=== PATIENT | male | born 1960 | race Caucasian/White ===

== ENCOUNTER 2017-09-11 10:18 | Emergency (ER) | payer BC ==
[2017-09-11 10:33] VITALS: TEMP 97.9
--- NOTE | 2017-09-11 11:56 | ED ---
General Adult HPI - General Chief complaint: Recheck/Abnormal Lab/Rx Stated complaint: elevated BP Time Seen by Provider: 09/11/17 11:03 Source: patient Mode of arrival: ambulatory Limitations: no limitations - History of Present Illness Initial comments: Patient presents with a chief complaint of back pain. he Is a 57-year-old male with no previous medical history noted. Patient states that 2 days ago, he was having a bonfire and sat down in a chair. When he sat down, the chair broke and he fell. He is complaining of pain in his lower back on the right side. Initially the patient was seen in medics presence of the emergency department for back pain and hypertension. Patient does not have a documented history of hypertension or restates that he has been borderline high in the past. Patient denies chest pain, shortness of breath, or abdominal pain. - Related Data Home Medications Medication Instructions Recorded Confirmed No Known Home Medications [No 09/11/17 09/11/17 Known Home Medications] Allergies Allergy/AdvReac Type Severity Reaction Status Date / Time No Known Allergies Allergy Verified 09/11/17 10:42 Review of Systems ROS Statement: Those systems with pertinent positive or pertinent negative responses have been documented in the HPI. ROS Other: All systems not noted in ROS Statement are negative. Musculoskeletal: Reports: back pain Past Medical History Additional Past Medical History / Comment(s): chronic back pain History of Any Multi-Drug Resistant Organisms: None Reported Past Surgical History: No Surgical Hx Reported Past Psychological History: No Psychological Hx Reported Smoking Status: Current every day smoker Past Alcohol Use History: Daily Past Drug Use History: None Reported General Exam Limitations: no limitations General appearance: alert, in no apparent distress Head exam: Present: atraumatic, normocephalic Eye exam: Present: normal appearance ENT exam: Present: normal exam Neck exam: Present: normal inspection Respiratory exam: Present: normal lung sounds bilaterally. Absent: respiratory distress Cardiovascular Exam: Present: regular rate, normal rhythm GI/Abdominal exam: Present: soft. Absent: distended, tenderness Rectal exam: Present: deferred Extremities exam: Present: normal inspection, other (extremities are warm with good cap refill, decreased pulses in left lower extremity. ) Back exam: Present: tenderness, muscle spasm, other (Patient is tenderness to palpation of the lower T-spine, and tenderness and muscle spasm on the right lower aspect of his back.) Neurological exam: Present: alert, oriented X3, CN II-XII intact, normal gait. Absent: motor sensory deficit Psychiatric exam: Present: normal affect, normal mood Skin exam: Present: warm, dry, intact Course Vital Signs 09/11/17 09/11/17 09/11/17 10:30 11:13 12:00 Temperature 97.9 F Pulse Rate 93 88 80 Respiratory 20 18 18 Rate Blood Pressure 177/99 187/106 190/114 O2 Sat by Pulse 96 97 96 Oximetry 09/11/17 09/11/17 12:45 12:55 Temperature Pulse Rate 78 77 Respiratory 18 18 Rate Blood Pressure 167/101 164/98 O2 Sat by Pulse 98 98 Oximetry Medical Decision Making - Medical Decision Making Patient presents with a chief complaint of lower back pain after a fall from a chair. On initial evaluation, patient is hypertensive, otherwise vital signs are stable. Patient was sent from that express reevaluation of back pain and hypertension. Examination is concerning as patient has decreased pulses felt on the left groin, and left dorsalis pedis. Nursing staff has a similar physical examination. Patient has good capillary refill and denies any pain or paresthesias of the lower extremities. Patient be evaluated with basic labs, computed tomography scan of the aorta. 1:26 PM Lab evaluation this patient is unremarkable. EKG performed at 12:08 PM shows normal sinus rhythm the rate of 88 bpm. EKG is otherwise unremarkable. Computed tomography scan shows no acute abnormality of the aorta. This time, patient is stable for discharge. Patient was instructed to take his previously prescribed Motrin as prescribed. Patient will be referred to primary care. The patient was instructed to follow-up in one to 2 days regarding his back pain , and his hypertension. Patient verbalizes understanding and is agreeable with this care plan. - Lab Data Result diagrams: 09/11/17 12:00 09/11/17 12:00 Lab Results 09/11/17 09/11/17 09/11/17 Range/Units 12:00 12:00 12:00 WBC 7.4 (3.8-10.6) k/uL RBC 4.91 (4.30-5.90) m/uL Hgb 15.6 (13.0-17.5) gm/dL Hct 45.1 (39.0-53.0) % MCV 91.8 (80.0-100.0) fL MCH 31.7 (25.0-35.0) pg MCHC 34.6 (31.0-37.0) g/dL RDW 12.3 (11.5-15.5) % Plt Count 215 (150-450) k/uL Neutrophils % 70 % Lymphocytes % 20 % Monocytes % 6 % Eosinophils % 2 % Basophils % 1 % Neutrophils # 5.2 (1.3-7.7) k/uL Lymphocytes # 1.5 (1.0-4.8) k/uL Monocytes # 0.4 (0-1.0) k/uL Eosinophils # 0.1 (0-0.7) k/uL Basophils # 0.0 (0-0.2) k/uL PT 10.2 (9.0-12.0) sec INR 1.0 (<1.2) Sodium 138 (137-145) mmol/L Potassium 4.4 (3.5-5.1) mmol/L Chloride 104 (98-107) mmol/L Carbon Dioxide 25 (22-30) mmol/L Anion Gap 9 mmol/L BUN 13 (9-20) mg/dL Creatinine 0.60 L (0.66-1.25) mg/dL Est GFR (CKD-EPI)AfAm >90 (>60 ml/min/1.73 sqM) Est GFR (CKD-EPI)NonAf >90 (>60 ml/min/1.73 sqM) Glucose 101 H (74-99) mg/dL Calcium 9.0 (8.4-10.2) mg/dL Troponin I (0.000-0.034) ng/mL 09/11/17 Range/Units 12:00 WBC (3.8-10.6) k/uL RBC (4.30-5.90) m/uL Hgb (13.0-17.5) gm/dL Hct (39.0-53.0) % MCV (80.0-100.0) fL MCH (25.0-35.0) pg MCHC (31.0-37.0) g/dL RDW (11.5-15.5) % Plt Count (150-450) k/uL Neutrophils % % Lymphocytes % % Monocytes % % Eosinophils % % Basophils % % Neutrophils # (1.3-7.7) k/uL Lymphocytes # (1.0-4.8) k/uL Monocytes # (0-1.0) k/uL Eosinophils # (0-0.7) k/uL Basophils # (0-0.2) k/uL PT (9.0-12.0) sec INR (<1.2) Sodium (137-145) mmol/L Potassium (3.5-5.1) mmol/L Chloride (98-107) mmol/L Carbon Dioxide (22-30) mmol/L Anion Gap mmol/L BUN (9-20) mg/dL Creatinine (0.66-1.25) mg/dL Est GFR (CKD-EPI)AfAm (>60 ml/min/1.73 sqM) Est GFR (CKD-EPI)NonAf (>60 ml/min/1.73 sqM) Glucose (74-99) mg/dL Calcium (8.4-10.2) mg/dL Troponin I <0.012 (0.000-0.034) ng/mL Disposition Clinical Impression: Hypertension, Back pain Disposition: HOME SELF-CARE Condition: Good Instructions: Low Back Strain (ED) Is patient prescribed a controlled substance at d/c from ED?: No Referrals: None,Stated [Primary Care Provider] - 1-2 days Jody Burch MD [STAFF PHYSICIAN] - 1-2 days
[2017-09-11 12:13] LABS: Basophils % (A) 1 %; Eosinophils # (A) 0.1 k/uL (0-0.7); Eosinophils % (A) 2 %; HCT 45.1 % (39.0-53.0); HGB 15.6 gm/dL (13.0-17.5); Lymphocytes # (A) 1.5 k/uL (1.0-4.8); Lymphocytes % (A) 20 %; MCH 31.7 pg (25.0-35.0); MCHC 34.6 g/dL (31.0-37.0); MCV 91.8 fL (80.0-100.0); Mean Platelet Volume 6.8; Monocytes # (A) 0.4 k/uL (0-1.0); Monocytes % (A) 6 %; Neutrophils # (A) 5.2 k/uL (1.3-7.7); Neutrophils % (A) 70 %; Platelet Count 215 k/uL (150-450); RBC 4.91 m/uL (4.30-5.90); RDW 12.3 % (11.5-15.5); WBC 7.4 k/uL (3.8-10.6)
[2017-09-11 12:22] LABS: Prothrombin Time 10.2 sec (9.0-12.0)
[2017-09-11 12:24] LABS: Anion Gap 9 mmol/L; Blood Urea Nitrogen 13 mg/dL (9-20); Carbon Dioxide 25 mmol/L (22-30); Chloride 104 mmol/L (98-107); Glucose 101 mg/dL (74-99); Potassium 4.4 mmol/L (3.5-5.1); Sodium 138 mmol/L (137-145)
--- NOTE | 2017-09-11 12:49 | CT ---
EXAMINATION TYPE: CT angio thoracic/abd aorta DATE OF EXAM: 09/11/2017 COMPARISON: NONE HISTORY: Low back pain without injury and hypertension CT DLP: 1879 mGycm. Automated Exposure Control for Dose Reduction was Utilized. CONTRAST: CTA scan of the thorax, abdomen and pelvis is performed with IV Contrast, patient injected with 100 m L of Isovue 370. Three-D reconstructed images are created independent workstation and reviewed. FINDINGS: VASCULAR: There is unremarkable central opacification of pulmonary arteries. There is satisfactory op acification of aorta without linear hypodensity to suggest dissection. No significant plaque or steno sis is present in majority. There is mild mixed plaque in the distal abdominal aorta. There is normal three-vessel origin from the aortic arch. There is patent celiac axis, SMA, bilateral single renal a rteries, and HAL without significant stenosis. There is mild mixed plaque bilateral common iliac melania waylon extending into internal iliac arteries. No significant stenosis is present. There is no signific ant plaque or stenosis in the external iliac arteries bilaterally. There is mild mixed plaque in the common femoral arteries successful bifurcation into superficial and deep femoral arteries, no signifi cant stenosis is evident. LUNGS: Mild emphysematous change with biapical pleural/parenchymal scarring is present. There is no s uspicious nodularity or masses. No worrisome consolidation or groundglass opacity is seen. No pleural effusion or pneumothorax is noted. MEDIASTINUM: There are no greater than 1 cm hilar or mediastinal lymph nodes. No cardiomegaly or pe ricardial effusion is seen. OTHER: Bilateral gynecomastia is identified. LIVER/GB: Liver is diffusely low dense relative to spleen on noncontrast study consistent with diffus e fatty infiltration PANCREAS: No significant abnormality is seen. SPLEEN: No significant abnormality is seen. ADRENALS: No significant abnormality is seen. KIDNEYS: No significant abnormality is seen. BOWEL: No significant abnormality is seen. GENITAL ORGANS: Central zone calcifications are seen in prostate gland at upper limits of normal in s ize. A few adjacent pelvic phleboliths are present. LYMPH NODES: No greater than 1cm abdominal or pelvic lymph nodes are appreciated. OSSEOUS STRUCTURES: There is moderate disc space narrowing L3-L4 and L4-L5 levels with vacuum disc ph enomenon. OTHER: There is moderate sized fat-containing right inguinal hernia. IMPRESSION: 1. No aortic aneurysm or dissection. No acute finding is seen to account for patient's symptoms.
[2017-09-11 13:48] VITALS: BP 159/102; PULSE 85; RESP 16
== END 2017-09-11 13:50 | disposition home or self-care (01) ==
LOC: EC 10:18
DX: I10 Essential (primary) hypertension (principal); M62.830 Muscle spasm of back; F17.200 Nicotine dependence, unspecified, uncomplicated; W07.XXXA Fall from chair, initial encounter
CPT/HCPCS: 36415; 93005; 80048; 84484; 85025; 85610; 75635; 71275; 99284; Q9967

== ENCOUNTER 2017-10-25 10:01 | Day surgery (SDC) | payer BC ==
[2017-10-18 10:05] VITALS: BMI 27.3
[~2017-10-25 10:01] MED LIST: DEXAMETHASONE SOD PHOSPHATE 10 MG/ML 1 ML VIAL IV ONE; HEPARIN SODIUM,PORCINE 5,000 UNIT/ML 1 ML VIAL SQ ONE; MIDAZOLAM 2 MG/2 ML VIAL IV PRN; ONDANSETRON 4 MG/2 ML VIAL IVP ONE; SCOPOLAMINE 1.5MG/72HR PATCH TRANSDERM ONE; ceFAZolin IN SWFI 2 GM/20 ML SYRINGE IVP ONE
[2017-10-25] MEDS: LACTATED RINGERS 1,000 ML IV SCH ×2 (10:48→10:50)
[2017-10-25] MEDS: LIDOCAINE 1% 20 ML VIAL (10MG/ML) FOR IV START INTRADERMA PRN ×2 (10:48→10:49)
--- NOTE | 2017-10-25 11:31 | P.GSHP ---
History of Present Illness H&P Date: 10/25/17 Chief Complaint: Bilateral inguinal hernia, umbilical hernia This is a 57-year-old male who presents today for laparoscopic robotic system repair of bilateral inguinal hernias and umbilical hernia. Patient developed pain at his umbilicus and bilateral groins. Past Medical History Past Medical History: Hypertension Additional Past Medical History / Comment(s): chronic back pain History of Any Multi-Drug Resistant Organisms: None Reported Past Surgical History: No Surgical Hx Reported Past Anesthesia/Blood Transfusion Reactions: No Reported Reaction Additional Past Anesthesia/Blood Transfusion Reaction / Comment(s): never had anesthesia Smoking Status: Current every day smoker - Past Family History Father Family Medical History: Myocardial Infarction ([place]) Medications and Allergies Home Medications Medication Instructions Recorded Confirmed Type Losartan Potassium 100 mg PO QAM 10/18/17 10/25/17 History [place]-3 Fatty Acids/Fish Oil [Fish 2 each PO QAM 10/18/17 10/25/17 History Oil 1,000 mg Softgel] Allergies Allergy/AdvReac Type Severity Reaction Status Date / Time No Known Allergies Allergy Verified 10/25/17 10:29 Surgical - Exam Vital Signs Temp Pulse Resp BP Pulse Ox 97.8 F 79 16 151/103 100 10/25/17 10:45 10/25/17 10:45 10/25/17 10:45 10/25/17 10:45 10/25/17 10:45 - General well developed, well nourished, no distress - Eyes PERRL - ENT normal pinna - Neck no masses - Respiratory normal expansion - Cardiovascular Rhythm: regular - Abdomen Abdomen: soft, non tender Hernia: inguinal (Bilateral), umbilical Assessment and Plan Assessment: Umbilical hernia, bilateral inguinal hernia, we will perform laparoscopic robotic-assisted repair.
[2017-10-25] MEDS ORDERED: fentaNYL (PF) 50 MCG/ML 2 ML AMP ONE (12:04)
[2017-10-25] MEDS ORDERED: KETOROLAC 30 MG/ML 1 ML VIAL ONE (12:04)
[2017-10-25] MEDS ORDERED: SUCCINYLCHOLINE CHLORIDE 100 MG/5 ML SYR IV ONE (12:04)
[2017-10-25] MEDS ORDERED: PROPOFOL 10 MG/ML 20 ML VIAL IV ONE (12:04)
[2017-10-25] MEDS ORDERED: PHENYLEPHRINE-0.9% NACL SYG 1 MG/10 ML SYRINGE ONE (12:04)
[2017-10-25] MEDS ORDERED: GLYCOPYRROLATE 0.2 MG/ML 2 ML VIAL ONE (12:04)
[2017-10-25] MEDS ORDERED: HYDROmorphone (PF) 1 MG/ML ONE (12:04)
[2017-10-25] MEDS ORDERED: MIDAZOLAM 2 MG/2 ML VIAL ONE (12:04)
[2017-10-25] MEDS ORDERED: NEOSTIGMINE 1 MG/ML 10 ML VIAL ONE (12:04)
[2017-10-25] MEDS ORDERED: LIDOCAINE 1% INJ 10MG/ML (20 ML MDV) ONE (12:04)
--- NOTE | 2017-10-25 12:15 | P.ONQ ---
Anesthesiology Proc Note - PNB - Peripheral Nerve Block Performed Bilateral Transversus Abdominis Single Time Out Performed: Yes Procedure Start Time: 10:54 Procedure Stop Time: 11:04 Indication: Acute Post-Operative Pain, Requested by physician Sedation Type: Sedate with meaningful contact maintained Preparation: Sterile Prep Position: Supine Needle Size: 50mm (2") Needle Gauge: 21 Technique: Ultrasound Injectate: 0.5% Ropivacaine (see comment for volume) (ropi .5% 15cc) Blood Aspirated: No Pain Paresthesia on Injection Noted: No Resistance on Injection: Normal Events: Uneventful and Well Tolerated
[2017-10-25] MEDS ORDERED: BUPIVACAIN-EPI 0.5%-1:200,000 30 ML VIAL SQ ONE (12:28)
[2017-10-25 13:37] VITALS: TEMP 97
--- NOTE | 2017-10-25 13:39 | P.OP ---
Date of Procedure: 10/25/17 Preoperative Diagnosis: Bilateral inguinal hernia, umbilical hernia Postoperative Diagnosis: Bilateral inguinal hernia, umbilical hernia Procedure(s) Performed: Senior Asp Net Developer scopic, robotic-assisted repair of bilateral inguinal hernia and umbilical hernia Excision of bilateral cord lipomas Anesthesia: EARLENE Surgeon: Reg Brown Estimated Blood Loss (ml): 5 Pathology: other (Bilateral cord lipoma) Condition: stable Disposition: PACU Description of Procedure: The patient's placed on the operating table in the supine position. The patient received general anesthesia. The patient's abdomen was prepped and draped in usual sterile fashion. The skin was anesthetized 1% local Xylocaine at the incision sites. Using an 11 blade a skin incision was made at the umbilicus at the level of the umbilical hernia.. The fascia was grasped with a Mag and then the peritoneal cavity was entered with the Veress needle. Position of the Veress needle was confirmed with a positive drop test. After adequate insufflation a 5 mm trocar was placed into the peritoneal cavity. The Laparoscope was placed the peritoneal cavity. And a robotic 8 mm trocar was placed in the right lateral position and then another 8 mm robotic trochars placed in the left lateral position. The original 5 mm trocar was exchanged for a 12 mm trocar. The patient was placed in reverse Trendelenburg and then the patient was docked to the robot. Next the peritoneum over top of the right inguinal hernia was incised and then using blunt and sharp dissection and electrocautery the hernia sac was dissected free from the floor of the inguinal canal. The cord lipoma was dissected free from the cord. The hernia sac was completely reduced into the peritoneal cavity. And then using the Pro manufacturing engineer mesh the hernia was repaired. The peritoneum was then sutured with 20V lock suture. Next the peritoneum over top of the left inguinal hernia was incised and then using blunt and sharp dissection and electrocautery the hernia sac was dissected free from the floor of the inguinal canal. The cord lipoma was dissected free from the cord. The hernia sac was completely reduced into the peritoneal cavity. And then using the Pro manufacturing engineer mesh the hernia was repaired. The peritoneum was then sutured with 20V lock suture. The patient was then undocked the robot. The needle was withdrawn from the peritoneal cavity. The umbilical hernia site was closed with 0 Ethibond suture. The skin was closed interrupted 3-0 Monocryl suture. Dermabond dressing was applied. Patient was sent to recovery in stable condition.
[2017-10-25] MEDS: HYDROmorphone 0.5 MG/0.5 ML SYRINGE IVP PRN ×2 (13:44→14:08)
[2017-10-25 14:27] VITALS: RESP 18
[2017-10-25 14:44] VITALS: BP 124/75; PULSE 70
== END 2017-10-25 15:01 | disposition home or self-care (01) ==
LOC: OR 10:01
PROVIDERS: ATTEND Surgery
DX: K40.20 Bilateral inguinal hernia, without obstruction or gangrene, not specified as recurrent (principal); K42.9 Umbilical hernia without obstruction or gangrene; D17.6 Benign lipomatous neoplasm of spermatic cord; I10 Essential (primary) hypertension; M54.9 Dorsalgia, unspecified; G89.29 Other chronic pain; Z79.899 Other long term (current) drug therapy; F17.210 Nicotine dependence, cigarettes, uncomplicated
CPT/HCPCS: 88304; 49650; 49652; 64488; C1781; J2250; J1644; J1100; J2710; J2405; J2001; J3010; J1885; J1170 ×2; J2370; J0330; J2704; J0690

== ENCOUNTER 2018-04-10 04:21 | Emergency (ER) | payer BC ==
[2018-04-10 04:26] VITALS: TEMP 98.7
[2018-04-10] MEDS ORDERED: SODIUM CHLORIDE 0.9% 500 ML 500 ML IV STA (04:48)
[2018-04-10] MEDS ORDERED: cloNIDine HCL 0.1 MG TAB PO STA (04:50)
--- NOTE | 2018-04-10 04:52 | ED ---
General Adult HPI - General Chief complaint: Neck Pain/Injury Stated complaint: neck stiffness,face tingling Time Seen by Provider: 04/10/18 04:28 Source: patient Mode of arrival: ambulatory Limitations: no limitations - History of Present Illness Initial comments: Ray is a 58 yo male with PMH of HTN and HLD who presents to the ED today for evaluation of neck pain and headache. Patient reports he was in his usual state of health today when he went to work, he reports that throughout his shift he develops stiffness in his neck that felt like muscle spasms bilaterally. Patient reports that throughout his shift this gradually improved however he developed a mild headache. Patient reports he has a history of high blood pressure and was concerned this may be a blood pressure problem so he came to the ER for evaluation. Patient reports feeling a sensation that his head is very full and pressure-like. He reports he felt like his face became swollen and tingly however that also resolved prior to arrival. Patient denies any vision changes, tinnitus or ringing in his ears, any lightheadedness or feeling like his get a pass out, he denies any chest pain, palpitations or shortness of breath. He denies any trouble speaking swallowing or communicating. - Related Data Home Medications Medication Instructions Recorded Confirmed Losartan Potassium 100 mg PO QAM 10/18/17 10/25/17 [place]-3 Fatty Acids/Fish Oil [Fish 2 each PO QAM 10/18/17 10/25/17 Oil 1,000 mg Softgel] Previous Rx's Medication Instructions Recorded Docusate [Colace] 100 mg PO BID #20 capsule 10/25/17 HYDROcodone/APAP 7.5-325MG [[place] 1 tab PO Q4H PRN 3 Days #18 tab 10/25/17 7.5-325] Allergies Allergy/AdvReac Type Severity Reaction Status Date / Time No Known Allergies Allergy Verified 04/10/18 04:26 Review of Systems ROS Statement: Those systems with pertinent positive or pertinent negative responses have been documented in the HPI. ROS Other: All systems not noted in ROS Statement are negative. Past Medical History Past Medical History: Hypertension Additional Past Medical History / Comment(s): chronic back pain History of Any Multi-Drug Resistant Organisms: None Reported Past Surgical History: No Surgical Hx Reported Past Anesthesia/Blood Transfusion Reactions: No Reported Reaction Additional Past Anesthesia/Blood Transfusion Reaction / Comment(s): never had anesthesia Past Psychological History: No Psychological Hx Reported Smoking Status: Current every day smoker Past Alcohol Use History: Daily Past Drug Use History: None Reported - Past Family History Father Family Medical History: Myocardial Infarction ([place]) General Exam - General Exam Comments Initial Comments: Physical Exam GENERAL: Unkempt appearance, smells strongly of body odor and urine HENT: Normocephalic, Atraumatic. EYES: PERRL, EOMI PULMONARY: Unlabored respirations. No audible rales rhonchi or wheezing was noted. CARDIOVASCULAR: There is a regular rate and rhythm without any murmurs gallops or rubs. No carotid bruit bilaterally ABDOMEN: Soft and nontender with normal bowel sounds. SKIN: Skin is clear with no lesions or rashes and otherwise unremarkable. : Deferred NEUROLOGIC: Patient is alert and oriented x3. Moving all extremities spontaneously MUSCULOSKELETAL: Normal extremities with adequate strength and full range of motion. No lower extremity swelling or edema. No calf tenderness. Decreased rotational range of motion of the neck bilaterally, paraspinal and trapezius hypertonicity bilaterally PSYCHIATRIC: Normal psychiatric evaluation. Limitations: no limitations Limitations: no limitations Course Vital Signs 04/10/18 04/10/18 04/10/18 04:23 05:24 05:30 Temperature 98.7 F Pulse Rate 100 83 Respiratory 20 16 Rate Blood Pressure 193/88 160/99 153/118 O2 Sat by Pulse 98 98 Oximetry 04/10/18 06:07 Temperature Pulse Rate 77 Respiratory 16 Rate Blood Pressure 140/98 O2 Sat by Pulse 94 L Oximetry Medical Decision Making - Medical Decision Making The patient was seen and evaluated history is obtained from the patient 58-year-old male with history of hypertension, currently hypertensive systolic greater than 190 presenting with atraumatic headache and neck pain Labs and imaging were ordered Labs with no significant abnormalities CT brain and CT angiography of the cervical spine and brain with no acute findings Patient was reevaluated was sleeping comfortably in bed. I woke the patient to discuss his results. Patient reports he feels comfortable at this time, agreeable to plan for discharge home. We'll contact his primary care physician to discuss antihypertensive medications. All questions pertaining care were answered return parameters were discussed the patient was discharged home with a work note excusing him from the half of the shift he missed today and giving him one day off to follow up with primary care physician. - Lab Data Result diagrams: 04/10/18 05:05 04/10/18 05:05 Lab Results 04/10/18 04/10/18 04/10/18 Range/Units 05:05 05:05 05:05 WBC 8.0 (3.8-10.6) k/uL RBC 4.42 (4.30-5.90) m/uL Hgb 14.1 (13.0-17.5) gm/dL Hct 41.5 (39.0-53.0) % MCV 93.8 (80.0-100.0) fL MCH 31.9 (25.0-35.0) pg MCHC 34.0 (31.0-37.0) g/dL RDW 12.5 (11.5-15.5) % Plt Count 241 (150-450) k/uL Neutrophils % 77 % Lymphocytes % 13 % Monocytes % 6 % Eosinophils % 2 % Basophils % 1 % Neutrophils # 6.2 (1.3-7.7) k/uL Lymphocytes # 1.1 (1.0-4.8) k/uL Monocytes # 0.5 (0-1.0) k/uL Eosinophils # 0.2 (0-0.7) k/uL Basophils # 0.0 (0-0.2) k/uL PT (9.0-12.0) sec INR (<1.2) APTT (22.0-30.0) sec Sodium 136 L (137-145) mmol/L Potassium 4.8 (3.5-5.1) mmol/L Chloride 102 (98-107) mmol/L Carbon Dioxide 27 (22-30) mmol/L Anion Gap 7 mmol/L BUN 20 (9-20) mg/dL Creatinine 0.70 (0.66-1.25) mg/dL Est GFR (CKD-EPI)AfAm >90 (>60 ml/min/1.73 sqM) Est GFR (CKD-EPI)NonAf >90 (>60 ml/min/1.73 sqM) Glucose 111 H (74-99) mg/dL Calcium 9.2 (8.4-10.2) mg/dL Total Bilirubin 0.5 (0.2-1.3) mg/dL AST 31 (17-59) U/L ALT 39 (21-72) U/L Alkaline Phosphatase 93 (38-126) U/L Total Creatine Kinase 217 H (55-170) U/L CK-MB (CK-2) 2.5 H (0.0-2.4) ng/mL CK-MB (CK-2) Rel Index 1.2 Troponin I <0.012 (0.000-0.034) ng/mL Total Protein 7.2 (6.3-8.2) g/dL Albumin 4.2 (3.5-5.0) g/dL 04/10/18 Range/Units 05:05 WBC (3.8-10.6) k/uL RBC (4.30-5.90) m/uL Hgb (13.0-17.5) gm/dL Hct (39.0-53.0) % MCV (80.0-100.0) fL MCH (25.0-35.0) pg MCHC (31.0-37.0) g/dL RDW (11.5-15.5) % Plt Count (150-450) k/uL Neutrophils % % Lymphocytes % % Monocytes % % Eosinophils % % Basophils % % Neutrophils # (1.3-7.7) k/uL Lymphocytes # (1.0-4.8) k/uL Monocytes # (0-1.0) k/uL Eosinophils # (0-0.7) k/uL Basophils # (0-0.2) k/uL PT 9.8 (9.0-12.0) sec INR 0.9 (<1.2) APTT 25.1 (22.0-30.0) sec Sodium (137-145) mmol/L Potassium (3.5-5.1) mmol/L Chloride (98-107) mmol/L Carbon Dioxide (22-30) mmol/L Anion Gap mmol/L BUN (9-20) mg/dL Creatinine (0.66-1.25) mg/dL Est GFR (CKD-EPI)AfAm (>60 ml/min/1.73 sqM) Est GFR (CKD-EPI)NonAf (>60 ml/min/1.73 sqM) Glucose (74-99) mg/dL Calcium (8.4-10.2) mg/dL Total Bilirubin (0.2-1.3) mg/dL AST (17-59) U/L ALT (21-72) U/L Alkaline Phosphatase (38-126) U/L Total Creatine Kinase (55-170) U/L CK-MB (CK-2) (0.0-2.4) ng/mL CK-MB (CK-2) Rel Index Troponin I (0.000-0.034) ng/mL Total Protein (6.3-8.2) g/dL Albumin (3.5-5.0) g/dL Disposition Clinical Impression: Hypertension Disposition: HOME SELF-CARE Instructions: Hypertension (ED) Is patient prescribed a controlled substance at d/c from ED?: No Referrals: Jordy Henderson DO [Primary Care Provider] - 1-2 days Time of Disposition: 06:24
[2018-04-10 05:25] VITALS: RESP 16
[2018-04-10 05:37] LABS: Basophils % (A) 1 %; Eosinophils # (A) 0.2 k/uL (0-0.7); Eosinophils % (A) 2 %; HCT 41.5 % (39.0-53.0); HGB 14.1 gm/dL (13.0-17.5); Lymphocytes # (A) 1.1 k/uL (1.0-4.8); Lymphocytes % (A) 13 %; MCH 31.9 pg (25.0-35.0); MCV 93.8 fL (80.0-100.0); Mean Platelet Volume 6.9; Monocytes # (A) 0.5 k/uL (0-1.0); Monocytes % (A) 6 %; Neutrophils # (A) 6.2 k/uL (1.3-7.7); Neutrophils % (A) 77 %; Platelet Count 241 k/uL (150-450); RBC 4.42 m/uL (4.30-5.90); RDW 12.5 % (11.5-15.5)
--- NOTE | 2018-04-10 05:43 | CT ---
EXAM: CT Head Without Intravenous Contrast CLINICAL HISTORY: ITS.REASON CT Reason: Pain TECHNIQUE: Axial computed tomography images of the head/brain without intravenous contrast. CTDI is 45.1 mGy and DLP is 997.1 mGy-cm. This CT exam was performed using one or more of the following dose reduction techniques: automated exposure control, adjustment of the mA and/or kV according to patient size, and/or use of iterative reconstruction technique. COMPARISON: None FINDINGS: Brain: Periventricular and subcortical white matter hypodensities which most likely represent sequela of chronic microvascular ischemic disease. No hemorrhage. Ventricles: Unremarkable. No ventriculomegaly. Bones/joints: Unremarkable. No acute fracture. Soft tissues: Unremarkable. Sinuses: Unremarkable as visualized. No acute sinusitis. Mastoid air cells: Unremarkable as visualized. No mastoid effusion. IMPRESSION: 1. No intracranial hemorrhage or other acute intracranial abnormality. 2. Chronic microvascular ischemic changes with more focal hypodensities in the bilateral cuello radiata which may represent age-indeterminate infarctions. Evaluation with MRI may be helpful if there is clinical concern for acute infarction.
[2018-04-10 05:51] LABS: ALT 39 U/L (21-72); AST 31 U/L (17-59); Albumin 4.2 g/dL (3.5-5.0); Alkaline Phosphatase 93 U/L (38-126); Anion Gap 7 mmol/L; Blood Urea Nitrogen 20 mg/dL (9-20); Calcium 9.2 mg/dL (8.4-10.2); Carbon Dioxide 27 mmol/L (22-30); Chloride 102 mmol/L (98-107); Glucose 111 mg/dL (74-99); Potassium 4.8 mmol/L (3.5-5.1); Sodium 136 mmol/L (137-145); Total Bilirubin 0.5 mg/dL (0.2-1.3); Total Protein 7.2 g/dL (6.3-8.2)
--- NOTE | 2018-04-10 05:51 | CT ---
EXAM: CT Angiography Head With Intravenous Contrast CLINICAL HISTORY: ITS.REASON CT Reason: neck pain, DEGROOT, HTN TECHNIQUE: Axial computed tomographic angiography images of the head with intravenous contrast using CT angiography protocol. CTDI is 11.1 mGy and DLP is 499.5 mGy-cm. This CT exam was performed using one or more of the following dose reduction techniques: automated exposure control, adjustment of the mA and/or kV according to patient size, and/or use of iterative reconstruction technique. 3D and MIP reconstructed images were created and reviewed. COMPARISON: CT head 04/10/2018. FINDINGS: Right internal carotid artery: No acute findings. Intracranial segment is patent with no significant stenosis. No aneurysm. Right anterior cerebral artery: Unremarkable. No occlusion or significant stenosis. No aneurysm. Right middle cerebral artery: Unremarkable. No occlusion or significant stenosis. No aneurysm. Right posterior cerebral artery: Unremarkable. No occlusion or significant stenosis. No aneurysm. Right vertebral artery: Unremarkable as visualized. Left internal carotid artery: No acute findings. Intracranial segment is patent with no significant stenosis. No aneurysm. Left anterior cerebral artery: Unremarkable. No occlusion or significant stenosis. No aneurysm. Left middle cerebral artery: Unremarkable. No occlusion or significant stenosis. No aneurysm. Left posterior cerebral artery: Unremarkable. No occlusion or significant stenosis. No aneurysm. Left vertebral artery: Unremarkable as visualized. Basilar artery: Unremarkable. No occlusion or significant stenosis. No aneurysm. IMPRESSION: No intracranial aneurysm, vascular malformation, or hemodynamically significant stenosis. EXAM: CT Angiography Neck With Intravenous Contrast CLINICAL HISTORY: ITS.REASON CT Reason: neck pain, DEGROOT, HTN TECHNIQUE: Axial computed tomographic angiography images of the neck with intravenous contrast using CT angiography protocol. CTDI is 11.1 mGy and DLP is 499.5 mGy-cm. This CT exam was performed using one or more of the following dose reduction techniques: automated exposure control, adjustment of the mA and/or kV according to patient size, and/or use of iterative reconstruction technique. 3D and MIP reconstructed images were created and reviewed. COMPARISON: None. FINDINGS: VASCULATURE: Right common carotid artery: Unremarkable. No significant stenosis. No dissection or occlusion. Right internal carotid artery: See below. Right external carotid artery: Unremarkable. No occlusion. Right vertebral artery: Unremarkable. No significant stenosis. No dissection or occlusion. Left common carotid artery: Unremarkable. No significant stenosis. No dissection or occlusion. Left internal carotid artery: See below. Left external carotid artery: Unremarkable. No occlusion. Left vertebral artery: Unremarkable. No significant stenosis. No dissection or occlusion. Other vasculature: Atherosclerosis of the carotid bifurcations without hemodynamically significant stenosis. NECK: Bones/joints: No acute fracture. No dislocation. Soft tissues: Unremarkable as visualized. No mass. Lung apices: Paraseptal emphysematous change of the lungs. Mediastinum: Mild wall thickening of the esophagus. CAROTID STENOSIS REFERENCE USING NASCET CRITERIA: % ICA stenosis = (1 - narrowest ICA diameter/diameter of distal cervical ICA) x 100. Mild - <50% stenosis. Moderate - 50-69% stenosis. Severe - 70-94% stenosis. Near occlusion - 95-99% stenosis. Occluded - 100% stenosis. IMPRESSION: 1. No dissection, pseudoaneurysm, or hemodynamically significant stenosis of the carotid or vertebral arteries. 2. Mild wall thickening of the esophagus. Recommend correlation for esophagitis. Consider direct visualization as clinically warranted. 3. Paraseptal emphysematous change of the lungs.
[2018-04-10 05:58] LABS: INR 0.9 (<1.2); Partial Thromboplastin Time 25.1 sec (22.0-30.0); Prothrombin Time 9.8 sec (9.0-12.0)
[2018-04-10 06:08] LABS: Creatine Kinase 217 U/L (55-170)
[2018-04-10 06:18] LABS: Creatine Kinase MB 2.5 ng/mL (0.0-2.4)
[2018-04-10 06:21] LABS: Troponin I <0.012 ng/mL (0.000-0.034)
[2018-04-10 06:33] VITALS: BP 144/90; PULSE 80
== END 2018-04-10 06:33 | disposition home or self-care (01) ==
LOC: EC 04:21
DX: I10 Essential (primary) hypertension (principal); R51 Headache; M54.2 Cervicalgia; F17.200 Nicotine dependence, unspecified, uncomplicated; Z79.899 Other long term (current) drug therapy
CPT/HCPCS: 36415; 93005; 80053; 82550; 82553; 84484; 85025; 85610; 85730; 70496; 70450; 70498; 99284; Q9967